=== PATIENT | male | born 1950 | race African-American/Black ===

== ENCOUNTER 2021-12-01 11:11 | Emergency (ER) | payer MEDICARE, MEDICAID ==
[~2021-12-01] VITALS: Ht 175.3 cm; Wt 86.0 kg
[2021-12-01 11:17] VITALS: BP 115/73
[2021-12-01] MEDS ORDERED: IPRATROPIUM BROMIDE (0.02%) 0.5MG/2.5ML NEB HHN STA (12:10)
[2021-12-01] MEDS ORDERED: ALBUTEROL (0.083%) 2.5MG/3ML NEB HHN STA (12:10)
[2021-12-01] MEDS ORDERED: PREDNISONE 20MG TABLET PO STA (12:10)
[2021-12-01] MEDS ORDERED: ACETAMINOPHEN 325MG TABLET PO ONE (12:15)
[2021-12-01] MEDS ORDERED: P50 MT (13:56)
[2021-12-01] MEDS ORDERED: ALBU6.7H9 INH (13:56)
== END 2021-12-01 14:52 | disposition home or self-care (01) ==
LOC: ER 11:11
DX: J44.1 Chronic obstructive pulmonary disease with (acute) exacerbation (principal); F17.210 Nicotine dependence, cigarettes, uncomplicated; Z71.6 Tobacco abuse counseling
CPT/HCPCS: 94640; 99283; 99406; J7512; Z7610